=== PATIENT | male | born 1950 | race Caucasian/White ===

== ENCOUNTER 2018-10-13 13:45 | Emergency (ER) | payer OTHER ==
[~2018-10-13] VITALS: Ht 180.3 cm; Wt 75.7 kg
[2018-10-13 13:52] VITALS: BP_SYST 202
[2018-10-13] MEDS ORDERED: NACL 0.9% 1,000 ML IV ONE (15:02)
[2018-10-13] MEDS ORDERED: MORPHINE 4 MG/ML INJ. SYRINGE IVP ONE (15:15)
[2018-10-13 16:14] LABS: BASOPHILS # (AUTO) 0.1 K/uL (0.0-0.2); BASOPHILS % (AUTO) 0.8 % (0.0-2.0); EOSINOPHILS # (AUTO) 0.2 K/uL (0.0-0.4); EOSINOPHILS % (AUTO) 2.4 % (0.0-4.0); HEMATOCRIT 46.4 % (36-54); HEMOGLOBIN 15.5 g/dL (14.0-18.0); LYMPHOCYTES # (AUTO) 1.9 K/uL (1.0-5.5); LYMPHOCYTES % (AUTO) 20.5 % (20.5-51.5); MEAN CORPUSCULAR HEMOGLOBIN 28 pg (27-31); MEAN CORPUSCULAR HGB CONC 33 % (32-36); MEAN CORPUSCULAR VOLUME 85 fL (79.0-98.0); MONOCYTES # (AUTO) 1.3 K/uL (0.0-1.0); MONOCYTES % (AUTO) 13.5 % (1.7-9.3); NEUTROPHILS # (AUTO) 5.8 K/uL (1.8-7.7); NEUTROPHILS % (AUTO) 62.8 % (40.0-70.0); PLATELET COUNT (AUTO) 344 K/uL (130-430); RED BLOOD CELL COUNT(AUTO) 5.47 MIL/uL (4.2-6.2); RED CELL DISTRIBUTION WIDTH 13.2 % (9.0-15.0); WHITE BLOOD COUNT (AUTO) 9.3 K/uL (4.8-10.8)
[2018-10-13] MEDS ORDERED: BACITRACIN 1 GM OINT TP ONE (16:15)
[2018-10-13] MEDS ORDERED: LIDOCAINE 1% 10 MG/ML, 20 ML MDV IJ ONE (16:15)
[2018-10-13 16:18] LABS: CALCIUM 8.7 mg/dL (8.4-11.0); CREATININE 1.36 mg/dL (0.55-1.30); POTASSIUM 4.6 mmol/L (3.5-5.1)
[2018-10-13 16:21] LABS: INR 0.9 (0.80-1.20); PROTHROMBIN TIME 9.4 SECS (9.5-12.5)
[2018-10-13 16:23] LABS: TOTAL BILIRUBIN 0.4 mg/dL (0.0-1.0)
[2018-10-13 17:14] VITALS: BP_SYST 148
== END 2018-10-13 17:14 | disposition home or self-care (01) ==
LOC: SED 13:45
DX: L98.8 Other specified disorders of the skin and subcutaneous tissue (principal); L02.01 Cutaneous abscess of face
CPT/HCPCS: 10060; 36415; 70486; 71045; 80053; 82550; 83690; 84484; 85025; 85610; 85730; 96374; 99284; J2001; J2270; J7030; J7040